=== PATIENT | male | born 1970 | race Two or more races ===

== ENCOUNTER 2019-10-02 14:08 | Emergency (ER) | payer MEDICAID, OTHER ==
[~2019-10-02] VITALS: Ht 165.1 cm; Wt 81.6 kg
[2019-10-02 14:50] VITALS: BP 138/76
[2019-10-02] MEDS ORDERED: HYDROcodone-ACET 10/325MG TAB PO ONE (15:30)
== END 2019-10-02 15:44 | disposition home or self-care (01) ==
LOC: ER 14:08
DX: S22.32XA Fracture of one rib, left side, initial encounter for closed fracture (principal); R41.82 Altered mental status, unspecified; W11.XXXA Fall on and from ladder, initial encounter; Y93.89 Activity, other specified; Y92.89 Other specified places as the place of occurrence of the external cause; Y99.8 Other external cause status
CPT/HCPCS: 70450; 71101

== ENCOUNTER 2022-10-05 18:10 | Emergency (ER) | payer MEDICAID ==
[~2022-10-05] VITALS: Ht 167.6 cm; Wt 80.0 kg
[~2022-10-05 18:10] MED LIST: ALBUAER3 IN; ASCO500T11 PO; AZIT500T66 PO; CHOL20007 PO; METH4PAK PO; PANT40T PO; ZINC220T6 PO
[2022-10-05] MEDS ORDERED: DexAMETHasone SOD PHOS 10MG/1ML VIAL INJ IM ONE (22:45)
[2022-10-05] MEDS ORDERED: HYDROcodone-ACET 5/325MG TAB PO ONE (22:45)
[2022-10-05] MEDS ORDERED: KETOROLAC TROMETH 60MG/2ML VIAL IM ONE (22:45)
[2022-10-05] MEDS ORDERED: HYDR-4902 PO (22:47)
[2022-10-06 03:00] VITALS: BP 132/78; PULSE 79; RESP 18; TEMP 98.6; O2SAT 97
== END 2022-10-06 07:19 | disposition home or self-care (01) ==
LOC: ER 18:10
DX: M17.12 Unilateral primary osteoarthritis, left knee (principal); M25.462 Effusion, left knee; W10.8XXA Fall (on) (from) other stairs and steps, initial encounter; Y93.01 Activity, walking, marching and hiking; Y92.89 Other specified places as the place of occurrence of the external cause; Y99.8 Other external cause status
CPT/HCPCS: 29505; 73562; 96372; 99284; J1100; J1885

== ENCOUNTER 2023-08-01 15:12 | Emergency (ER) | payer MEDICAID ==
[~2023-08-01] VITALS: Ht 165.1 cm; Wt 90.6 kg
[~2023-08-01 15:12] MED LIST changes: +HYDR-4902 PO
[2023-08-01] MEDS ORDERED: CEPH500C PO (16:26)
[2023-08-01 16:45] VITALS: BP 146/80; PULSE 90; RESP 18; TEMP 97.8; O2SAT 100
== END 2023-08-01 16:46 | disposition home or self-care (01) ==
LOC: ER 15:12
DX: L03.012 Cellulitis of left finger (principal); Z79.899 Other long term (current) drug therapy
CPT/HCPCS: 10060